=== PATIENT | male | born 1970 | race Caucasian/White ===

== ENCOUNTER 2016-10-22 01:51 | Emergency (ER) | payer SELFPAY ==
--- NOTE | 2016-10-22 02:37 | ED.PDOC ---
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 He was asked where he came from stated home drove himself here. Timing/Duration: 4-6 hours Severity: moderate Improving Factors: nothing Worsening Factors: nothing Associated Symptoms: denies symptoms Allergies/Adverse Reactions: Allergies Penicillins Allergy (Verified 10/22/16 02:31) Home Medications: Ambulatory Orders Risperdal 10/22/16 Review of Systems - Review of Systems Constitutional: States: no symptoms reported EENTM: States: no symptoms reported Respiratory: States: no symptoms reported Cardiology: States: no symptoms reported Gastrointestinal/Abdominal: States: no symptoms reported Genitourinary: States: no symptoms reported Musculoskeletal: States: neck pain Neurological: States: headache Endocrine: States: no symptoms reported Hematologic/Lymphatic: States: no symptoms reported Past Medical History (General) - Patient Medical History Hx MRSA: No Hx Other PMH: Yes - mental health issues Surgical History: no surgical history - Vaccination History Hx Influenza Vaccination: No Immunizations Up to Date: No Immunizations Comment: pt has new phobia of any injections - Social History Hx Tobacco Use: No Hx Chewing Tobacco Use: No Hx Alcohol Use: No Hx Substance Use: No Hx Substance Use Treatment: No - Activities of Daily Living Patient Lives Alone: - stated lives in his car - Triage Comment ED Triage Comment: [facility] in [facility], concern enough by department there to call medics and then MR for consult. Family Medical History - Family History Father Family History: No Known Living Status: Still Living Physical Exam - Physical Exam General Appearance: Anxious, No apparent distress Eye Exam: bilateral normal Ears, Nose, Throat: hearing grossly normal, normal ENT inspection, normal pharynx Neck: limited range of motion Respiratory: chest non-tender, lungs clear, normal breath sounds, no respiratory distress, no accessory muscle use Cardiovascular/Chest: normal peripheral pulses, regular rate, rhythm, no edema, no gallop, no JVD, no murmur Peripheral Pulses: radial,right: 2+, radial,left: 2+ Gastrointestinal/Abdominal: normal bowel sounds, non tender, soft, no organomegaly Back Exam: normal inspection, no CVA tenderness, no vertebral tenderness Extremity: normal range of motion, non-tender, normal inspection 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, no motor/sensory deficits, alert, disoriented x 3 - stating came from home then mentioned he lives in his car Skin Exam: normal color, warm/dry, other - old healing abrasion both knees Lymphatic: no adenopathy Progress - Results/Orders Results/Orders: 10/22/16 02:55 CARDIAC ENZYME GROUP Stat MAGNESIUM Stat PARTIAL THROMBOPLASTIN TIME Stat PROTHROMBIN TIME Stat Laboratory Results WBC 12.1 K/mm3 (4.8-10.8) H 10/22/16 02:55 RBC 4.66 M/mm3 (4.70-6.10) L 10/22/16 02:55 Hgb 14.5 gm/dL (14.0-18.0) 10/22/16 02:55 Hct 42.6 % (42.0-52.0) 10/22/16 02:55 MCV 91.5 fl (80.0-94.0) 10/22/16 02:55 MCH 31.1 pg (27.0-31.0) H 10/22/16 02:55 MCHC 33.9 g/dL (33.0-37.0) 10/22/16 02:55 RDW 13.2 % (11.5-14.5) 10/22/16 02:55 Plt Count 242 K/mm3 (130-400) 10/22/16 02:55 MPV 7.2 fl (7.40-10.4) L 10/22/16 02:55 Absolute Neuts (auto) 10.00 K/uL (1.8-6.8) H 10/22/16 02:55 Absolute Lymphs (auto) 1.20 K/uL (1.0-3.4) 10/22/16 02:55 Absolute Monos (auto) 0.80 K/uL (0.2-0.8) 10/22/16 02:55 Absolute Eos (auto) 0.00 K/uL (0.0-0.4) 10/22/16 02:55 Absolute Basos (auto) 0.10 K/uL (0.0-0.1) 10/22/16 02:55 Neutrophils % 83.2 % (42.0-78.0) H 10/22/16 02:55 Lymphocytes % 9.9 % (20.0-50.0) L 10/22/16 02:55 Monocytes % 6.4 % (2.0-9.0) 10/22/16 02:55 Eosinophils % 0.1 % (1.0-5.0) L 10/22/16 02:55 Basophils % 0.4 % (0.0-2.0) 10/22/16 02:55 ESR 5 mm/hr (0-15) 10/22/16 02:35 Sodium 140 mmol/L (135-145) 10/22/16 02:55 Potassium 4.0 mmol/L (3.6-5.0) 10/22/16 02:55 Chloride 102 mmol/L (101-111) 10/22/16 02:55 Carbon Dioxide 27 mmol/L (21-31) 10/22/16 02:55 Anion Gap 15.0 (12-18) 10/22/16 02:55 BUN 20 mg/dL (7-18) H 10/22/16 02:55 Creatinine 0.76 mg/dL (0.6-1.3) 10/22/16 02:55 BUN/Creatinine Ratio 26.3 (10-20) H 10/22/16 02:55 Random Glucose 108 mg/dL (70-105) H 10/22/16 02:55 Serum Osmolality 282.5 mOsm/L (275-295) 10/22/16 02:55 Lactic Acid 1.9 mmol/L (0.5-2.2) 10/22/16 03:30 Calcium 9.1 mg/dL (8.4-10.2) 10/22/16 02:55 Total Bilirubin 0.2 mg/dL (0.2-1.0) 10/22/16 02:55 AST 29 IU/L (10-42) 10/22/16 02:55 ALT 28 IU/L (10-60) 10/22/16 02:55 Alkaline Phosphatase 69 IU/L (42-121) 10/22/16 02:55 C-Reactive Protein < 0.5 mg/dL (0-1.0) 10/22/16 02:35 Serum Total Protein 7.1 gm/dL (6.4-8.2) 10/22/16 02:55 Albumin 4.1 g/dl (3.2-5.5) 10/22/16 02:55 Globulin 3.0 gm/dL (2.3-3.5) 10/22/16 02:55 Albumin/Globulin Ratio 1.4 (1.1-1.9) 10/22/16 02:55 Urine Color Yellow (Yellow) 10/22/16 02:35 Urine Appearance Clear (Clear) 10/22/16 02:35 Urine pH 7.0 (4.5-7.8) 10/22/16 02:35 Ur Specific [place] 1.015 (1.005-1.030) 10/22/16 02:35 Urine Protein Negative mg/dL 10/22/16 02:35 Urine Glucose (UA) Negative mg/dL (Negative) 10/22/16 02:35 Urine Ketones Negative mg/dL (NEGATIVE) 10/22/16 02:35 Urine Blood Negative (Negative) 10/22/16 02:35 Urine Nitrite Negative 10/22/16 02:35 Urine Bilirubin Negative (NEGATIVE) 10/22/16 02:35 Urine Urobilinogen 0.2 mg/dL (0.2-1.0) 10/22/16 02:35 Ur Leukocyte Esterase Negative (Negative) 10/22/16 02:35 Urine RBC 0-1 /hpf 10/22/16 02:35 Urine WBC 0-1 /hpf 10/22/16 02:35 Ur Epithelial Cells 0 /hpf 10/22/16 02:35 Urine Bacteria 0 10/22/16 02:35 Urine Opiates Screen Negative ng/mL (2000) 10/22/16 02:35 Urine Barbiturates Negative ng/mL (200) 10/22/16 02:35 Ur Phencyclidine Scrn Negative ng/mL (25) 10/22/16 02:35 U Amphetamin/Meth Scrn Negative ng/mL (1000) 10/22/16 02:35 U Benzodiazepines Scrn Negative ng/mL (200) 03/13/17 02:35 U Cocaine Metab Screen Negative ng/mL (300) 10/22/16 02:35 U Cannabinoids Screen Negative ng/mL (50) 10/22/16 02:35 Cardiac enzyme-normal; All his lab test discuss with him offered hospital observation but declined stating does not want needles advised to come backto er as needed - EKG/XRAY/CT EKG: Sinus, no ST T wave changes Comments: normal ekg XRAY: chest - no acute abnormalities noted CT Ordered: Yes - head/neck-no acute abnormalities noted Departure - Departure Clinical Impression: Neck ache Head ache Qualifiers: Headache type: unspecified Headache chronicity pattern: unspecified pattern Intractability: not intractable Qualifier Code: (R51) Headache Time of Disposition: 05:28 Disposition: Discharge to Home or Self Care Condition: Good Departure Forms: ED Discharge - Pt. Copy, Patient Portal Self Enrollment Home Medications: Ambulatory Orders Risperdal 10/22/16 Additional Instructions: RETURN TO EMERGENCY ROOM NEEDED
--- NOTE | 2016-10-22 03:34 | CT ---
EXAM: CT head without contrast. INDICATION: Headache. TECHNIQUE: Contiguous axial CT images of the brain. Intravenous contrast: Absent. DLP 870 mGy-cm. COMPARISON: None. FINDINGS: Subcutaneous: Unremarkable. No acute intracranial hemorrhage. No midline shift. No mass effect. Ventricles: No hydrocephalus. Wade-white differentiation preserved. Paranasal sinuses/mastoid air cells: Visualized portions are aerated. Bones/orbits: Visualized portions are unremarkable. IMPRESSION: 1. No CT evidence of acute intracranial hemorrhage. Electronically signed by: Shaun Chacon MD 10/22/2016 3:32 AM CDT
--- NOTE | 2016-10-22 03:35 | CT ---
EXAM: CT cervical spine without contrast. INDICATION: Trauma. Neck pain. TECHNIQUE: Contiguous axial CT images of the cervical spine. Intravenous contrast: Absent. Reformats: MPRs created and utilized. DLP 400 mGy-cm. COMPARISON: None. FINDINGS: Alignment: Preserved. Fracture: No acute fracture or subluxation. Odontoid process: Intact. Prevertebral soft tissues: No edema. Spondylosis: There is mild disc space narrowing at C5-C6. Other: None. IMPRESSION: 1. No CT evidence of acute osseous injury of the cervical spine. Electronically signed by: Shaun Chacon MD 10/22/2016 3:34 AM CDT
--- NOTE | 2016-10-22 05:10 | RAD ---
EXAM: Single view chest. INDICATION: Chest pain. COMPARISON: Chest x-ray: 04/18/2011. FINDINGS: Cardiac silhouette: Unremarkable. Laila: Unremarkable. Lobar consolidation: None. Pleural effusion: None. Pneumothorax: None. Other: None. Bones: Unremarkable. Other: None. IMPRESSION: 1. No acute cardiopulmonary process. Electronically signed by: Shaun Chacon MD 10/22/2016 5:09 AM CDT
[2016-10-22 05:52] VITALS: BP 106/58; TEMP 98.1; O2SAT 97
== END 2016-10-22 05:53 | disposition home or self-care (01) ==
LOC: ER 01:51
DX: R51 Headache (principal); M54.2 Cervicalgia; Z88.0 Allergy status to penicillin; Z59.0 Homelessness

== ENCOUNTER → 2018-10-03 | Outpatient (CLI) | payer SELFPAY ==
--- NOTE | 2018-10-05 14:15 | RAD ---
EXAM DESCRIPTION: Ankle,Right 3 Views: CR/DR/XR CLINICAL HISTORY: 48 years Male PAIN IN RIGHT ANKLE JOINT COMPARISON: None. TECHNIQUE: 3 VIEWS right ankle AP. Lateral. Oblique. FINDINGS: Normal bone density. Ankle mortise is congruent. No fracture or dislocation. No soft tissue swelling. No radiodense loose bodies in the joint spaces. IMPRESSION: No radiographic evidence of acute bony or joint margin abnormality. Electronically signed by: Manuelito Thomas MD 10/05/2018 2:12 PM [facility]
== END ==
LOC: RAD 13:22
PROVIDERS: ATTEND Nurse Practitioner Family
DX: M25.571 Pain in right ankle and joints of right foot (principal)

== ENCOUNTER 2019-06-01 20:01 | Emergency (ER) | payer SELFPAY ==
--- NOTE | 2019-06-01 20:56 | ED.PDOC ---
History of Present Illness - General Chief Complaint: Abdominal Pain Stated Complaint: N/V, Abdominal pain & Cramping Time Seen by Provider: 06/01/19 20:32 Information Source: patient Exam Limitations: no limitations - History of Present Illness Initial Comments: 48 y/o M presents to the ED c/o central abd cramping and N/V/D onset 1530 this afternoon. He reports that he had been on a 2 week fast that ended in a binge yesterday. He denies fever/chills or blood in stool or vomit. He reports similar sx with severe constipation in the past but denies hx of previous abd surgeries. Pain waxes and wanes from 5- 9/10 in severity and seems a little better with movement. Nothing he does seems to make it go completely away. Review of Systems - Review of Systems Constitutional: Denies: chills, fever EENTM: Denies: throat pain, mouth pain Respiratory: Denies: cough, short of breath Cardiology: Denies: chest pain, palpitations Gastrointestinal/Abdominal: States: abdominal pain, diarrhea, nausea, vomiting Genitourinary: Denies: dysuria, hematuria Musculoskeletal: Denies: joint pain, muscle pain Skin: Denies: lesions, rash Neurological: Denies: headache, numbness, weakness Past Medical History (General) - Patient Medical History Hx Seizures: No Hx Stroke: No Hx Dementia: No Hx Asthma: No Hx of COPD: No Hx Cardiac Disorders: No Hx Congestive Heart Failure: No Hx Pacemaker: No Hx Hypertension: No Hx Thyroid Disease: No Hx Diabetes: No Hx Gastroesophageal Reflux: No Hx Renal Disease: No Hx of HIV: No Hx MRSA: No Surgical History: no surgical history - Vaccination History Hx Influenza Vaccination: No - Social History Hx Tobacco Use: No Hx Chewing Tobacco Use: No Hx Alcohol Use: No Hx Substance Use: No Hx Substance Use Treatment: No - Activities of Daily Living Hospice Agency (if applicable):: None - Triage Comment ED Triage Comment: pt ambulated to ED bed 1 without difficulty. pt voices nausea/vomiting that started around 1500 today with abdominal cramping and pain. Pt voices back pain, as well. pt grimmacing as he is lying on his side in the bed. Family Medical History - Family History Father Family History: No Known Living Status: Still Living Physical Exam - Physical Exam General Appearance: Alert, Obvious distress Eyes, Ears, Nose, Throat Exam: PERRL/EOMI, normal ENT inspection, pharynx normal, other - slightly dry oral mucosa Neck: full range of motion, normal inspection Respiratory: lungs clear, normal breath sounds, no respiratory distress Cardiovascular/Chest: normal peripheral pulses, regular rate, rhythm, no edema Peripheral Pulses: 2+ Gastrointestinal/Abdominal: abnormal bowel sounds - hypoactive, distended, guarding, tenderness - diffuse Back Exam: normal inspection, no CVA tenderness Extremity: normal range of motion, normal inspection, no pedal edema Neurologic: alert, normal mood/affect, other - moves all extremities without focal deficits Progress - Progress Progress: 06/01/19 21:40 Pt still with severe pain only temporarily relieved with fentanyl. Will try something else. Lab results discussed and CT report still pending. 22:15 PM Pt and updated on CT findings of ureteral stone, bowel inflammation and abnormal lesion on liver. Discussed plan for toradol and pt thinks that he may be able to pee. We discussed plan for repeat lactate check and if pain controlled will discuss options at that time. He and agree with plan. 06/01/19 23:07 Pt resting comfortably, now pain free. 06/01/19 23:35 Pt is resting comfortably. Discussed UA results and repeat lactic acid results. Although lactic acid increased slightly I discussed these findings with the pt and he says that he would prefer to take abx and go home. 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 We discussed plan for d/c with oral abx, pain medications, flomax and zofran. He was advised to f/u with his PCP and return for uncontrolled pain, fevers, recurrent vomiting or other concerning signs/sx. Pt and have voiced understanding and agree with treatment plan. All questions/concerns were addressed. - Results/Orders Results/Orders: 06/01/19 20:40 Hold Metformin x 48Hrs [id number] IV Care:Saline Lock per Protoc QSHIFT Telemetry PRN Sodium Chloride 0.9% (Flush) [Saline Flush Syringe] 10 ml IV PRN PRN Sodium Chloride 0.9% 1000ML [Ns 1000 ml] 1,000 ml IVS .QD EKG Assessment ONCE 06/01/19 20:45 EKG STAT 06/01/19 21:26 Sodium Chloride 0.9% 1000ML [Ns 1000 ml] 2,517.45 ml IVS ONCE 06/01/19 23:42 cefTRIAXone SODIUM [Rocephin] 1 gm Sodium Chl 0.9% 50Ml Min-Bag+ [NS 50ml MINI-BAG+] 50 ml IVPB ONCE 06/01/19 23:50 Strain Urine PRN Laboratory Results - last 24 hr 06/01/19 06/01/19 06/01/19 20:50 20:50 20:50 WBC 7.9 RBC 4.62 L Hgb 14.2 Hct 41.2 L MCV 89.3 MCH 30.8 MCHC 34.5 RDW 12.9 Plt Count 266 MPV 8.0 Absolute Neuts (auto) 6.60 Absolute Lymphs (auto) 0.70 L Absolute Monos (auto) 0.60 Absolute Eos (auto) 0.00 Absolute Basos (auto) 0.00 Neutrophils % 83.3 H Lymphocytes % 8.7 L Monocytes % 7.5 Eosinophils % 0.1 L Basophils % 0.4 Sodium 139 Potassium 2.8 L Chloride 104 Carbon Dioxide 20 L Anion Gap 17.8 BUN 14 Creatinine 1.07 BUN/Creatinine Ratio 13.1 Random Glucose 136 H Serum Osmolality 280.1 Lactic Acid 3.9 H* Calcium 9.1 Total Bilirubin 0.5 AST 30 ALT 19 Alkaline Phosphatase 59 Serum Total Protein 7.1 Albumin 4.0 Globulin 3.1 Albumin/Globulin Ratio 1.3 Lipase 42 Urine Color Urine Appearance Urine pH Ur Specific [place] Urine Protein Urine Glucose (UA) Urine Ketones Urine Blood Urine Nitrite Urine Bilirubin Urine Urobilinogen Ur Leukocyte Esterase Urine RBC Urine WBC Ur Epithelial Cells Calcium Oxalate Crystal Amorphous Sediment Urine Bacteria 06/01/19 06/01/19 22:50 23:15 WBC RBC Hgb Hct MCV MCH MCHC RDW Plt Count MPV Absolute Neuts (auto) Absolute Lymphs (auto) Absolute Monos (auto) Absolute Eos (auto) Absolute Basos (auto) Neutrophils % Lymphocytes % Monocytes % Eosinophils % Basophils % Sodium Potassium Chloride Carbon Dioxide Anion Gap BUN Creatinine BUN/Creatinine Ratio Random Glucose Serum Osmolality Lactic Acid 4.1 H* Calcium Total Bilirubin AST ALT Alkaline Phosphatase Serum Total Protein Albumin Globulin Albumin/Globulin Ratio Lipase Urine Color Brown Urine Appearance Turbid Urine pH 6.0 Ur Specific [place] 1.010 Urine Protein 30 Urine Glucose (UA) Negative Urine Ketones Trace Urine Blood Large H Urine Nitrite Negative Urine Bilirubin Negative Urine Urobilinogen 0.2 Ur Leukocyte Esterase Negative Urine RBC Tntc H Urine WBC 1-3 Ur Epithelial Cells 0-1 Calcium Oxalate Crystal 1+ Amorphous Sediment 2+ Urine Bacteria 2+ H CT ABD/PELVIS: IMPRESSION: Proximal left ureteral stone causing at least partial obstruction. Findings also suggest inflammation of the colon. See comments regarding the liver, where there is a possible focal lesion adjacent to the falciform ligament. Follow-up is recommended. See additional findings above. Electronically signed by: Manuelito Wangjenelle 06/01/2019 10:00 PM CDT - 6901 - EKG/XRAY/CT EKG: Sinus - rate 81, nonspecific ST T wave Chg Comments: Nl axis. Nl intervals. No ST elevation. Departure - Departure Clinical Impression: Ureterolithiasis, Hypokalemia, Dehydration, Vomiting and diarrhea, Colitis, Lactic acidosis Hydronephrosis Qualifiers: Hydronephrosis type: with renal calculous obstruction Qualified Code(s): N13.2 - Hydronephrosis with renal and ureteral calculous obstruction Time of Disposition: 23:46 Disposition: Discharge to Home or Self Care Condition: Good Departure Forms: ED Discharge - Pt. Copy, Patient Portal Self Enrollment Instructions: DI for Abdominal Pain-Adult, Kidney Stones in Adults, Nausea and Vomiting, Adult (DC) Diet: other - clear liquids and advance as tolerated. Referrals: Stephanie Cornejo, TAXONOMIST [Primary Care Provider] - 1-2 Days Prescriptions: Acetaminophen W/ Codeine [Tylenol W/ CODEINE #3] 1 ea PO Q6H PRN #15 PRN Reason: Pain Cephalexin Monohydrate [Keflex] 500 mg PO TID #30 cap Naproxen [Naproxen EC] 500 mg PO Q12H PRN #20 tab PRN Reason: Pain Ondansetron Odt [Zofran ODT] 4 mg PO Q8H PRN #7 tab PRN Reason: Nausea Potassium Chloride Tab [K-Dur] 40 meq PO DAILY 14 Days #28 tab Tamsulosin HCl [Flomax] 0.4 mg PO DAILY #10 cap Home Medications: Ambulatory Orders Risperdal 10/22/16 Acetaminophen W/ Codeine [Tylenol W/ CODEINE #3] 1 ea PO Q6H PRN #15 06/01/19 Cephalexin Monohydrate [Keflex] 500 mg PO TID #30 cap 06/01/19 Naproxen [Naproxen EC] 500 mg PO Q12H PRN #20 tab 06/01/19 Ondansetron Odt [Zofran ODT] 4 mg PO Q8H PRN #7 tab 06/01/19 Potassium Chloride Tab [K-Dur] 40 meq PO DAILY 14 Days #28 tab 06/01/19 Tamsulosin HCl [Flomax] 0.4 mg PO DAILY #10 cap 06/01/19 Additional Instructions: Follow up with PCP about further imaging for hepatic lesion. Push oral fluids. Take medications as needed and return for uncontrolled pain, fevers, recurrent vomiting or other concerns.
[2019-06-01] MEDS: fentaNYL CITRATE INJ 50 MCG/ML AMP IV ONE (21:20)
[2019-06-01] MEDS: ONDANSETRON INJ 4 MG/2 ML VIAL IV ONE (21:20)
[2019-06-01] MEDS: SODIUM CHLORIDE 0.9% 1000ML 1,000 ML IVS PRN (21:20)
[2019-06-01] MEDS: SODIUM CHLORIDE 0.9% (FLUSH) 10 ML SYG IV PRN (21:26)
[2019-06-01] MEDS: POTASSIUM CHLORIDE 20 MEQ TAB PO ONE (21:45)
[2019-06-01] MEDS: diphenhydrAMINE HCL 50 MG/ML VIAL IV ONE (21:54)
[2019-06-01] MEDS: SODIUM CHLORIDE 0.9% IVS ONE (21:55)
[2019-06-01] MEDS: HALOPERIDOL LACTATE INJ 5 MG/ML VIAL IV ONE (21:55)
--- NOTE | 2019-06-01 22:02 | CT ---
EXAM DESCRIPTION: Abdomen/Pelvis w/Contrast CLINICAL HISTORY: severe abd pain COMPARISON: None Available TECHNIQUE: Contiguous axial images of the abdomen and pelvis were obtained after the administration of intravenous contrast followed by reconstruction images.This exam was performed according to our departmental dose-optimization program, which includes automated exposure control, adjustment of the mA and/or kV according to patient size and/or use of iterative reconstruction technique. FINDINGS: Relatively decreased attenuation of the liver adjacent to the falciform ligament could directly be asymmetric fat distribution. However it is well-defined and larger than typically seen and focal lesion of the liver is not excluded. This lesion measures approximately 38 mm transverse by 23 mm AP. Follow-up is recommended. There is left moderate hydronephrosis with left perinephric stranding and enlargement of the left kidney. The proximal left ureter is dilated as is the left renal pelvis. There is a 3 mm stone best seen on coronal reconstructions at the point of transition of caliber of the left proximal ureter. No right ureteral or renal stone is seen. No additional left renal stone is seen. At the lateral aspect of the liver right lobe there is a 6 mm low-attenuation nonspecific lesion. Fat but no bowel extends into the left inguinal canal. There is mild thickening of the wall of the entire colon worst at the distal descending and sigmoid colon with mild soft tissue stranding of the surrounding fat. This suggests inflammation. Ischemia is less likely. There is a small hiatal hernia. The gallbladder is unremarkable. Adrenal glands are within normal limits. Aorta is normal in caliber and tapering. No significant free fluid. No free air. No bowel obstruction. The appendix appears normal. No evidence of periappendiceal inflammation. IMPRESSION: Proximal left ureteral stone causing at least partial obstruction. Findings also suggest inflammation of the colon. See comments regarding the liver, where there is a possible focal lesion adjacent to the falciform ligament. Follow-up is recommended. See additional findings above. Electronically signed by: Manuelito Fuentes 06/01/2019 10:00 PM CDT
[2019-06-01] MEDS: KETOROLAC TROMETHAMINE INJ 30 MG/ML VIAL IV ONE (22:19)
[2019-06-01] MEDS ORDERED: SODIUM CHL 0.9% 50ML MIN-BAG+ 50 ML IVPB ONE (23:44)
[2019-06-01] MEDS ORDERED: cefTRIAXone SODIUM 1 GM VIAL ONE (23:44)
[2019-06-01] MEDS: cefTRIAXone SODIUM 1 GM in SODIUM CHL 0.9% 50ML MIN-BAG+ 50 ML IVPB ONE (23:46)
[2019-06-02 01:03] VITALS: BP 98/64; TEMP 97.4; O2SAT 98
== END 2019-06-02 01:02 | disposition home or self-care (01) ==
LOC: ER 20:01
DX: N13.2 Hydronephrosis with renal and ureteral calculous obstruction (principal); E87.6 Hypokalemia; E86.0 Dehydration; K52.9 Noninfective gastroenteritis and colitis, unspecified; E87.2 Acidosis; Z79.899 Other long term (current) drug therapy
CPT/HCPCS: 74177; 80053; 81001; 83605; 83690; 85025; 93005; J0696; J1200; J1630; J1885; J2405; J3010; J7030; J7050